=== PATIENT | female | born 1985 | race Caucasian/White ===

== ENCOUNTER 2017-02-23 10:42 | Emergency (ER) | payer OTHER | END 2017-02-23 12:11 | disposition left against medical advice (07) | LOC: ER 10:42 | DX: N39.0 Urinary tract infection, site not specified (principal); R80.9 Proteinuria, unspecified; J44.9 Chronic obstructive pulmonary disease, unspecified; R10.32 Left lower quadrant pain; R10.9 Unspecified abdominal pain; R11.2 Nausea with vomiting, unspecified; R19.7 Diarrhea, unspecified; K50.90 Crohn's disease, unspecified, without complications; F17.200 Nicotine dependence, unspecified, uncomplicated; Z79.899 Other long term (current) drug therapy ==

== ENCOUNTER 2017-03-17 09:32 | Emergency (ER) | payer OTHER ==
[2017-03-17 10:20] LABS: BASO % 0.3 % (0.1-1.2); EOS # 0.1 10_X3_uL (0.0-0.4); EOS % 0.7 % (0.7-5.8); GRAN # 9.7 10_X3_uL (1.6-6.1); GRAN % 82.9 % (34.0-71.1); HEMATOCRIT 37.8 % (34-45); HEMOGLOBIN 12.3 g/dL (11.2-15.7); LYMPH # 1.3 10_X3_uL (1.2-3.7); LYMPH % 10.9 % (19.3-51.7); MEAN CORPUSCULAR HEMOGLOBIN 25.3 pg (27.0-33.0); MEAN CORPUSCULAR HGB CONC 32.5 g/dL (32.0-36.0); MEAN CORPUSCULAR VOLUME 77.6 fL (79-95); MEAN PLATELET VOLUME 10.1 fl (7.5-11.5); MONO # 0.6 10_X3_uL (0.2-0.9); MONO % 5.2 % (4.7-12.5); PLATELET COUNT 304 x10_3/uL (182-369); RED BLOOD COUNT 4.87 x10_6/uL (3.9-5.2); WHITE BLOOD COUNT 11.7 x10_3/uL (4.0-10.0)
[2017-03-17 10:33] LABS: URINE BILIRUBIN 2+ (NEGATIVE); URINE BLOOD TRACE (NEGATIVE); URINE GLUCOSE (UA) NORMAL (NORMAL); URINE KETONE 1+ (NEGATIVE); URINE LEUKOCYTE ESTERASE 2+ (NEGATIVE); URINE NITRATE POSITIVE (NEGATIVE); URINE PROTEIN 1+ (NEGATIVE)
[2017-03-17 10:39] LABS: ALBUMIN 3.4 gm/dL (3.4-5.0); ALKALINE PHOSPHATASE 81 U/L (50-136); ALT/SGPT 14 U/L (3.5-33.9); AMYLASE 41 U/L (15.62-74.58); AST/SGOT 9 U/L (7.04-26.96); BILIRUBIN,TOTAL 0.41 mg/dL (0.0-1.0); BLOOD UREA NITROGEN 6 mg/dL (7-18); CALCIUM 8.6 mg/dL (8.7-10.7); CARBON DIOXIDE 26 mmol/L (21-32); CREATININE 0.5 mg/dL (0.6-1.3); GLUCOSE,RANDOM 98 mg/dL (70-99); LIPASE 19 U/L (6.75-60.75); POTASSIUM 3.4 mmol/L (3.5-5.1); SODIUM 140 mmol/L (136-145); TOTAL PROTEIN 6.7 gm/dL (6.4-8.2)
[2017-03-17 10:45] LABS: URINE BACTERIA 1+ (NONE SEEN); URINE SQUAMOUS EPITHELIAL CELL 0-10 /[HPF] (NONE SEEN); URINE WBC >15 /[HPF] (0-5)
== END 2017-03-17 15:40 | disposition short-term general hospital (02) ==
LOC: ER 09:32
PROVIDERS: Emergency Medicine
DX: K50.90 Crohn's disease, unspecified, without complications (principal); F17.210 Nicotine dependence, cigarettes, uncomplicated; Z79.899 Other long term (current) drug therapy
CPT/HCPCS: 36415; 80053; 81001; 82150; 83690; 85025; 87086; 96365; 96366; 96372; 96375; 99070; 99285-25; J1170

== ENCOUNTER 2017-04-12 13:44 | Emergency (ER) | payer OTHER ==
[2017-04-12 14:06] LABS: PH,URINE 6.5 (5.0 - 9.0); URINE BILIRUBIN NEGATIVE (NEGATIVE); URINE BLOOD NEGATIVE (NEGATIVE); URINE GLUCOSE (UA) NORMAL (NORMAL); URINE KETONE NEGATIVE (NEGATIVE); URINE LEUKOCYTE ESTERASE 1+ (NEGATIVE); URINE NITRATE NEGATIVE (NEGATIVE); URINE PROTEIN NEGATIVE (NEGATIVE); UROBILINOGEN NORMAL mg/dL (<1.0)
[2017-04-12 14:14] LABS: URINE BACTERIA FEW (NONE SEEN); URINE SQUAMOUS EPITHELIAL CELL 0-10 /[HPF] (NONE SEEN)
[2017-04-12 14:42] LABS: BASO % 0.3 % (0.1-1.2); EOS # 0.1 10_X3_uL (0.0-0.4); EOS % 1.2 % (0.7-5.8); GRAN # 6.9 10_X3_uL (1.6-6.1); GRAN % 74.3 % (34.0-71.1); HEMOGLOBIN 12.6 g/dL (11.2-15.7); LYMPH # 1.9 10_X3_uL (1.2-3.7); LYMPH % 20.4 % (19.3-51.7); MEAN CORPUSCULAR HEMOGLOBIN 26.3 pg (27.0-33.0); MEAN CORPUSCULAR HGB CONC 33.2 g/dL (32.0-36.0); MEAN CORPUSCULAR VOLUME 79.3 fL (79-95); MEAN PLATELET VOLUME 11.4 fl (7.5-11.5); MONO # 0.4 10_X3_uL (0.2-0.9); MONO % 3.8 % (4.7-12.5); PLATELET COUNT 210 x10_3/uL (182-369); RED BLOOD COUNT 4.79 x10_6/uL (3.9-5.2); RED CELL DISTRIBUTION WIDTH 17.8 % (11.7-14.4); WHITE BLOOD COUNT 9.3 x10_3/uL (4.0-10.0)
[2017-04-12 14:55] LABS: ALBUMIN 3.4 gm/dL (3.4-5.0); ALKALINE PHOSPHATASE 51 U/L (50-136); ALT/SGPT 12 U/L (3.5-33.9); AMYLASE 38 U/L (15.62-74.58); AST/SGOT 23 U/L (7.04-26.96); BILIRUBIN,TOTAL 0.29 mg/dL (0.0-1.0); BLOOD UREA NITROGEN 5 mg/dL (7-18); CALCIUM 8.7 mg/dL (8.7-10.7); CARBON DIOXIDE 22 mmol/L (21-32); CREATININE 0.5 mg/dL (0.6-1.3); GLUCOSE,RANDOM 98 mg/dL (70-99); LIPASE 19 U/L (6.75-60.75); SODIUM 138 mmol/L (136-145); TOTAL PROTEIN 6.6 gm/dL (6.4-8.2)
[2017-04-12 14:58] LABS: POTASSIUM 3.9 mmol/L (3.5-5.1)
== END 2017-04-12 18:39 ==
LOC: ER 13:44
PROVIDERS: Emergency Medicine
DX: N32.1 Vesicointestinal fistula (principal); N30.80 Other cystitis without hematuria; K50.90 Crohn's disease, unspecified, without complications; R11.0 Nausea; F17.210 Nicotine dependence, cigarettes, uncomplicated; Z79.899 Other long term (current) drug therapy
CPT/HCPCS: 36415; 80053; 81001; 81025; 82150; 83690; 85025; 87086; 96361; 96374; 99070; 99284-25